=== PATIENT | male | born 1965 | race Caucasian/White ===

== ENCOUNTER 2018-09-10 00:07 | Emergency (ER) | payer BC, SELFPAY ==
[2018-09-10 00:08] VITALS: BP 178/90; PULSE 96; RESP 26; TEMP 36.9; O2SAT 96; BMI 32.6
--- NOTE | 2018-09-10 00:24 | RAD_ITS ---
STUDY: X-RAY CHEST REASON FOR EXAM: Male, 52 years old. Chest pain. TECHNIQUE: AP portable chest COMPARISON: None. FINDINGS: The lungs are clear and expanded. There is no demonstrated pleural abnormality. Normal size heart. Normal mediastinum and sandrine. Normal visualized pulmonary arteries. Normal visualized aortic arch and descending thoracic aorta. Normal visualized thoracic spine. Normal visualized ribs, clavicles, and shoulders. There is no demonstrated abnormality of the visualized soft tissue structures of the upper abdomen. RAD/Chest 1 View (Portable) IMPRESSION: Normal x-ray examination of the chest. Electronically Signed: Warren Cornejo MD at 0:54 EDT , Service support ,
--- NOTE | 2018-09-10 00:24 | EKG12_ITS ---
Test Reason : CP Blood Pressure : / mmHG Vent. Rate : 096 BPM Atrial Rate : 096 BPM P-R Int : 142 ms QRS Dur : 092 ms QT Int : 324 ms P-R-T Axes : 044 050 042 degrees QTc Int : 409 ms Normal sinus rhythm Normal ECG Confirmed by ZAK WOLF MD ([id number]), news editor NATANAEL CROCKETT ([id number]) on 09/14/2018 4:31:17 PM Referred By: BB Confirmed By:ZAK WOLF MD
--- NOTE | 2018-09-10 00:25 | ED.VIS.GEN ---
History of Present Illness Chief Complaint: Chest Pain Informant: Patient Onset: Today - 6.5 hrs ago Context: Gradual Onset - at rest, shortly after dinner Timing: Continuous Quality: dull ache Location: lower substernal Current Severity: Moderate Maximum Severity: Moderate Worsened by: slightly by deep inspiration. no change w/ light exertion. Relieved by: nothing. Associated Symptoms: none. Narrative: No radiation. No nausea or vomiting. No palpitations or dizziness. No shortness of breath. No recent calf pain or swelling. No recent travel, surgeries, hospitalizations, or other reasons for mobilization. No history of DVT or PE. No history of heart disease or strong history in first-degree relatives a young ages. Former smoker, less than [id number]-[id number] history. Currently chews tobacco but does not smoke it. Treated for hypertension, no other past medical history. Does a fair amount of exertion daily with work, has never had any angina with it. No stress test in the past. - Past Medical History (1) Hypertension Status: Chronic Past Medical History - Allergies and Home Meds Allergies/Adverse Reactions: Allergies No Known Allergies Allergy (Verified 09/10/18 00:19) Primary Care Physician: Conner De Leon MD [NON-STAFF] - As soon as possible Lives: Spouse/ Significant Other Smoking Status: Former smoker Drugs: None - Family History Paternal Family History: Reports: Hypertension. Denies: Heart Disease Review of Systems General: Denies: Chills, Fever, Sweats Eyes: Denies: Visual changes - bilaterally, Diplopia ENT: Denies: Rhinorrhea, Sore throat Cardiovascular: Reports: Chest pain. Denies: Palpitations Respiratory: Denies: Dyspnea, Cough, Dyspnea on exertion Gastrointestinal: Denies: Abdominal pain, Nausea, Vomiting, Diarrhea, Melena, Hematochezia Genitourinary: Denies: Dysuria, Hematuria, Frequency Musculoskeletal: Reports: Extremity Pain - Sore thighs bilaterally. Denies: Back pain Skin: Denies: Rash, Wounds Neurological: Denies: Headache, Weakness, Numbness Physical Exam Vital Signs/Narrative: Vital Signs Temp Pulse Resp BP Pulse Ox 09/10/18 00:08 98.4 F 96 26 H 178/90 H 96 Inital Vital Signs reviewed: Yes General: Well nourished, Well developed, No Acute Distress Head: Normocephalic, Atraumatic Eyes: Perrl, EOMI ENT: Moist mucous membranes, No rhinorrhea Neck: Supple, Nontender, No JVD Cardiovascular: Regular rate, Regular rhythm, No murmurs, Normal S1, Normal S2. Negative for: Tachycardia Respiratory: No distress, CTA bilaterally, Chest tenderness - Mild sternal Abdomen: Soft, Nondistended, Normal bowel sounds, Tender - Mild epigastrium. Negative for: Guarding, Rebound tenderness Back: Nontender, Normal Inspection Extremities: Nontender, No edema. Negative for: Calf Tenderness Skin: Normal color, No rash, No Trauma Neurological: Alert, Oriented x3, Cranial nerves II-XII grossly intact, Normal Strength, Normal Sensation Psychological: Normal affect, Normal Mood Diagnostic/Tx/Re-eval Impressions Chest X-Ray 09/10/18 00:24 IMPRESSION: Normal x-ray examination of the chest. Electronically Signed: Warren Cornejo MD at 0:54 EDT , Service support , 09/10/18 00:24 Chest 1 View (Portable) [RAD] Stat Laboratory Results 09/10/18 09/10/18 00:10 00:10 WBC 9.6 RBC 5.26 Hgb 15.2 Hct 43.1 MCV 81.9 MCH 28.9 MCHC 35.3 RDW 13.5 RDW Differential 40.1 Plt Count 264 MPV 8.2 Immature Gran % (Auto) 0.100 Neut % (Auto) 79.9 H Lymph % (Auto) 11.1 L Parker % (Auto) 5.9 Eos % (Auto) 2.8 Baso % (Auto) 0.2 Absolute Neuts (auto) 7.7 Absolute Lymphs (auto) 1.07 Total Counted Not Reportable Sodium 136 Potassium 3.7 Chloride 104 Carbon Dioxide 25.0 Anion Gap 7 BUN 24 H Creatinine 0.90 Estim Creat Clear Calc 96.88 Est GFR (MDRD) Af Amer 113 Est GFR (MDRD) Non-Af 94 BUN/Creatinine Ratio 26.8 H Glucose 120 H Calcium 8.6 Troponin I < 0.015 - Rhythm Strip Rhythm Strip: Sinus Rhythm Rate: 96 Ectopy: None - EKG Initial EKG Interpretation: Sinus Rhythm, No Acute Injury Pattern - Normal EKG. No prior. - Medical Decision Making Workup is normal including chest x-ray, EKG, troponin. His heart score is 2 because of his age and one risk factor. His LEVI risk score is 0. The single troponin that we measured, which is negative, was performed after he had 6+ hours of continuous discomfort. For that reason I do not think we need to repeat it tonight. I offered admission for urgent nonemergent stress testing since he does not have a PCP. He declines and prefers to go home. He was given a GI cocktail, it dulled the pain a little but did not resolve it. We tried a nitroglycerin, it did not change his discomfort. Esophageal spasm is in the differential diagnosis as is chest wall discomfort, unstable angina is very unlikely, given all of the above. Explained all this to the patient and he is comfortable going home. Given a PCP to follow-up with. ED Disposition - Plan for ED Patient: Disposition: Home or Assisted Living Diagnosis: Chest pain, unspecified Instructions: ED Chest Pain Atypical Unkn Cause Referrals: Conner De Leon MD [NON-STAFF] - As soon as possible
[2018-09-10 00:32] LABS: Absolute Lymphocyte Count 1.07 X10^3/ul (0.83-4.51); Absolute Neutrophil Count 7.7 X10^3/uL (2.0-7.7); Basophil# 0.02 X10^3/uL; Basophil% 0.2 % (0-1); Eosinophil# 0.27 X10^3/uL; Eosinophils% 2.8 % (0-5); Hematocrit 43.1 % (40-54); Hemoglobin 15.2 g/dl (13.0-16.5); Lymphocyte # 1.07 X10^3/ul (4.0); Lymphocyte % 11.1 % (19-41); Mean Corp Hgb Conc 35.3 g/gl (32-36); Mean Corpuscular Hgb 28.9 pg (27.0-32.0); Mean Corpuscular Volume 81.9 fL (80-94); Mean Platelet Vol. 8.2 fl (6.2-12.0); Monocyte# 0.57 X10^3/uL; Monocyte% 5.9 % (0-10); Neutrophil # 7.67 X10^3/uL (2.7-7.7); Neutrophil % 79.9 % (47-70); Platelet Count 264 K/mm3 (150-450); RBC Distribution Width CV 13.5 % (11.6-14.6); RBC Distribution Width SD 40.1 fl (35.1-43.9); Red Blood Count 5.26 M/mm3 (4.6-6.2); White Blood Count 9.6 K/mm3 (4.4-11.0)
[2018-09-10] MEDS: Mag Hydrox/Al Hydrox/Simeth 30 ML UDC PO (00:37)
[2018-09-10 00:40] LABS: POSITIVE COUNT NO; POSITIVE DIFFERENTIAL NO; POSITIVE MORPHOLOGY NO
[2018-09-10 00:44] LABS: Anion Gap 7 (5-15); BUN 24 mg/dL (7-18); BUN/Creat Ratio 26.8 RATIO (10-20); Calcium,Total 8.6 mg/dL (8.5-10.1); Chloride 104 mmol/L (98-107); EST Glomerular Filtration Rate 94 mL/min (>60); Est Glom Filt Rate - Afr Amer 113 mL/min (>60); Estimated Creatinine Clearance 96.88 ml/min; Glucose 120 mg/dL (74-106); Potassium 3.7 mmol/L (3.5-5.1); Sodium Level 136 mmol/L (136-145)
[2018-09-10 01:29] VITALS: BP 129/81; PULSE 78
[2018-09-10 01:39] VITALS: BP 112/74; PULSE 81; RESP 25; O2SAT 95
[2018-09-10 01:46] VITALS: BP 112/74; PULSE 81; RESP 25; O2SAT 95
== END 2018-09-10 01:48 | disposition home or self-care (01) ==
PROVIDERS: Emergency Provider Emergency Medicine
DX: R07.9 Chest pain, unspecified (principal); I10 Essential (primary) hypertension; F17.220 Nicotine dependence, chewing tobacco, uncomplicated; Z87.891 Personal history of nicotine dependence
CPT/HCPCS: 71045; 80048; 84484; 85025; 93005; 99285; A4216

== ENCOUNTER → 2023-11-26 | Outpatient (CLI) | payer BC, SELFPAY ==
[2023-11-26 16:11] LABS: Absolute Lymphocyte Count 1.71 X10^3/uL (0.83-4.51); Absolute Neutrophil Count 5.3 X10^3/uL (2.0-7.7); Basophil# 0.03 X10^3/uL; Basophil% 0.4 % (0-1); Eosinophil# 0.45 X10^3/uL; Eosinophils% 5.6 % (0-5); Hematocrit 45.3 % (40-54); Hemoglobin 15.5 g/dL (13.0-16.5); Lymphocyte # 1.71 X10^3/ul (0.83-4.51); Lymphocyte % 21.2 % (19-41); Mean Corp Hgb Conc 34.2 g/dL (32-36); Mean Corpuscular Volume 87.6 fL (80-94); Mean Platelet Vol. 8.5 fl (6.2-12.0); Monocyte# 0.53 X10^3/uL; Monocyte% 6.6 % (0-10); NRBC Flagged by Analyzer 0 % (0-5); Neutrophil # 5.33 X10^3/uL (2.7-7.7); Platelet Count 232 K/mm3 (150-450); RBC Distribution Width CV 12.5 % (11.6-14.6); RBC Distribution Width SD 40.3 fl (35.1-43.9); Red Blood Count 5.17 M/mm3 (4.6-6.2); White Blood Count 8.1 K/mm3 (4.4-11.0)
[2023-11-26 16:50] LABS: ALB/GLOB Ratio 0.9 RATIO (0.9-2.4); AST(SGOT) 14 U/L (15-37); Alanine Aminotransfer ALT/SGPT 25 U/L (16-61); Albumin, Serum 3.7 g/dL (3.2-5.0); Alkaline Phosphatase 81 U/L (45-117); Anion Gap 4 (5-15); BUN 23 mg/dL (7-18); BUN/Creat Ratio 21.5 RATIO (10-20); Calcium,Total 9.1 mg/dL (8.5-10.1); Chloride 104 mmol/L (98-107); Cholesterol 161 mg/dL (200); Creatinine, Serum 1.07 mg/dL (0.70-1.30); EST Glomerular Filtration Rate 75 mL/min (>60); Est Glom Filt Rate - Afr Amer 91 mL/min (>60); Glucose 86 mg/dL (74-106); High Density Lipoprotein 47 mg/dL; PSA,Total- Diagnostic 0.38 ng/mL (0.0-4.0); Potassium 4.1 mmol/L (3.5-5.1); Protein, Total 7.7 g/dL (6.4-8.2); Sodium Level 137 mmol/L (136-145); Thyroid Stim Hormone (TSH) 2.34 uIU/mL (0.358-3.74); Triglycerides 88 mg/dL; Very Low Density Lipoprotein 18 mg/dL (5-40)
== END | disposition home or self-care (01) ==
LOC: BIMLAB 15:41
PROVIDERS: PCP Internal Medicine; Visit Provider Internal Medicine
DX: I10 Essential (primary) hypertension (principal); R39.12 Poor urinary stream; Z13.6 Encounter for screening for cardiovascular disorders
CPT/HCPCS: 36415; 80053; 80061; 84153; 84443; 85025

== ENCOUNTER 2024-01-20 08:20 | Day surgery (SDC) | payer BC, SELFPAY ==
[2024-01-20] VITALS (7 sets, daily range): BP systolic 68–137; BP diastolic 40–79; PULSE 58–81; RESP 16–18; TEMP 36.4–36.8; O2SAT 92–100; BMI 32.7
--- NOTE | 2024-01-20 08:42 | PCM.PRE.AN2 ---
ASA Classification* ASA Classification ASA Classification: 2 Assessment & Plan Anesthesia* Anesthesia Assessment Anesthesia Assessment: Discussed sedation and/or anesthesia options, risks, benefits, and alternatives with patient/parents/legal guardian/POA. Questions invited. The patient/parents/legal guardian/POA seems to understand and agrees to proceed with anesthesia plan. Reviewed the physical assessment, medical history, allergy history and patient home medications list prior to surgery/procedure/anesthetic and documented any changes. Performed airway and anesthesia risk assessments. Anesthesia Type Anesthesia Type: MAC (see written pre anesthesia record for full assessment) Anesthesia Focused Assessment* Airway Assessment Mouth opens: >3 cm Mallampati Score: II Focused Labs Anesthesia Preop lab: CBC WBC 8.1 K/mm3 (4.4-11.0) 11/26/23 15:41 RBC 5.17 M/mm3 (4.6-6.2) 11/26/23 15:41 Hgb 15.5 g/dL (13.0-16.5) 11/26/23 15:41 Hct 45.3 % (40-54) 11/26/23 15:41 Plt Count 232 K/mm3 (150-450) 11/26/23 15:41 CHEMISTRY Potassium 4.1 mmol/L (3.5-5.1) 11/26/23 15:41 Sodium 137 mmol/L (136-145) 11/26/23 15:41 BUN 23 mg/dL (7-18) H 11/26/23 15:41 Creatinine 1.07 mg/dL (0.70-1.30) 11/26/23 15:41 Glucose 86 mg/dL (74-106) 11/26/23 15:41 TSH 2.34 uIU/mL (0.358-3.74) 11/26/23 15:41 COAG Pre-Assessment Diagnosis/Proposed Procedure Planned Operative Procedure(s): CSCOPE Anesthesia History Anesthesia History - senior director insight: Anesthesia History - senior director insight Hx Hospitalization No 01/15/24 10:14 Any Problems With Anesthesia No 01/15/24 10:14 Cholinesterase deficiency No 01/15/24 10:14 You/Your Family Experience No 01/15/24 10:14 fever (hyperthermia) with Relationship Recent Exposure to Contagious Disease Does patient have nerve No 01/15/24 10:14 stimulator Patient instructed to have device shut off --Does patient have Pacemaker or ICD? When Was Last Pacemaker Check QUESTION #4 FULL TEXT: You/Your Family Experience fever (hyperthermia) with Anesthesia Last Oral Intake Last Oral intake: Last Oral Intake NPO since Meds taken in AM with sips of water? Meds patient instructed to take am of surgery PONV PONV - senior director insight: PONV - senior director insight Female No 01/15/24 10:14 HX of Motion Sickness No 01/15/24 10:14 HX of N/V After Surgery No 01/15/24 10:14 Non-Smoker Yes 01/15/24 10:14 Duration of Surgery greater No 01/15/24 10:14 than 60 minutes Number of Risk Factors 1 01/15/24 10:14 PONV Score Low Risk 01/15/24 10:14 Height & Weight Height & Weight: Anesthesia: Height & Weight Height 5 ft 10 in 11/26/23 08:00 Respiratory Assessment Respiratory Assessment - senior director insight: Respiratory Tract Infection Hx - senior director insight Hx Respiratory Tract Infection No 01/15/24 10:14 STOP Sleep Apnea STOP Sleep Apnea - senior director insight: STOP Sleep Apnea - senior director insight Hx Hypertension Yes: CONTROLLED WITH MED 01/15/24 10:14 Hx Sleep Apnea No 01/15/24 10:14 CPAP BIPAP Do you snore loudly (louder No 01/15/24 10:14 than talking or can be heard Do you often feel tired/ No 01/15/24 10:14 fatigued/ sleepy during daytime? Has anyone observed you stop No 01/15/24 10:14 breathing during sleep? STOP Results Negative 01/15/24 10:14 QUESTION #5 FULL TEXT : Do you snore loudly (louder than talking or can be heard through closed doors)? Tobacco Use History Tobacco Use History - senior director insight: Tobacco Use History - senior director insight Tobacco Use Smoking Status Current every day smoker 01/15/24 10:14 Hx Tobacco Use Yes 01/15/24 10:14 Years Smoking Packs Smoked per Day Smoking Cessation Date was within the last 15 years Hx Smoking Cessation Date Hx Smoking Cessation Counseling Hematologic Medial History Hematologic Hx - senior director insight: Hematologic Medical Hx - documentation spec Hx of Blood Transfusion No 01/15/24 10:14 Hx of Transfusion in last 3 No 01/15/24 10:14 Months Date of Last Transfusion (if within last 3 months) Ever experience any problems No 01/15/24 10:14 with transfusion(s)? Specify any problems Hx of Preganancy in last 3 N/A 01/15/24 10:14 Months Nurse Filling Out Transfusion NBUCHER 01/15/24 10:14 & Questions: Date: 01/15/24 01/15/24 10:14 Time: 10:16 01/15/24 10:14 Patient unable to answer at this time (ie. confused, unrespo /Reproduction History /Reproductive History - senior director insight: /Reproductive Hx- senior director insight Hx Now No 01/15/24 10:14 Gestational Age (in weeks): EDC: Hx Hx Para Hx Section SAB No 01/15/24 10:14 Active Medications Active Medications: Current Medications Generic Name Dose Route Start Last Admin Trade Name Freq PRN Reason Stop Dose Admin Lactated Ringer's 1,000 mls @ 15 mls/hr 01/20/24 08:30 IV .Q48H JESUS PFSH Medical History Wears contact lenses Arthritis Chronic cough Smokeless tobacco use Former smoker Family history of colon cancer in father Hx of colonic polyp Back problem Seasonal allergies Asthma Home Medications ?Medication ?Instructions ?Recorded ?Last Taken ?Type lisinopril 20 mg tablet 20 mg PO DAILY #90 tabs 12/10/23 Unknown Rx vitamin B complex 1 tab PO DAILY 12/15/23 Unknown History Allergy/AdvReac Type Severity Reaction Status Date / Time No Known Allergies Allergy Verified 01/15/24 10:13 Family History Father Cancer liver,bladder Colon cancer Hypertension Sister Hypertension Sister Hypertension Surgical History History of colonoscopy with polypectomy H/O cataract removal with insertion of prosthetic lens S/P appendectomy Social History adopted: No household members: spouse and children number of children: 2 current occupational status: employed current occupation: [employer] pets and animals: Yes (1) pets and animals: dog(s) sexually active: Yes Smoking Status: Current every day smoker tobacco type: smokeless tobacco Tobacco: How many years used: 7 Smokeless tobacco user: chewing tobacco alcohol intake: current alcohol intake frequency: 0-2 drinks per day Alcohol type: beer substance use type: does not use caffeine: Yes (1-2) Type: coffee frequency: daily seatbelt use: always do you feel safe at home: Yes Review of Systems (Anesthesia) ROS Narrative System reviewed and no additional complaints, except as documented.
[2024-01-20] MEDS: Lactated Ringers 1,000 ML 15 ML IV (08:43)
--- NOTE | 2024-01-20 08:59 | HP.PCM_ITS ---
HPI - General HPI Narrative OZZIE JENKINS, is a 58 M who presents for screening colonoscopy. Last colonoscopy was 10 years ago. Patient denies blood in the stool or abdominal pain. He does have family history of colon cancer in his father over age 60. [facility] Medical History Wears contact lenses Arthritis Chronic cough Smokeless tobacco use Former smoker Family history of colon cancer in father Hx of colonic polyp Back problem Seasonal allergies Asthma Home Medications ?Medication ?Instructions ?Recorded ?Last Taken ?Type lisinopril 20 mg tablet 20 mg PO DAILY #90 tabs 12/10/23 01/20/24 Rx vitamin B complex 1 tab PO DAILY 12/15/23 Unknown History Allergy/AdvReac Type Severity Reaction Status Date / Time No Known Allergies Allergy Verified 01/20/24 08:43 Family History Father Cancer liver,bladder Colon cancer Hypertension Sister Hypertension Sister Hypertension Surgical History History of colonoscopy with polypectomy H/O cataract removal with insertion of prosthetic lens S/P appendectomy Social History adopted: No household members: spouse and children number of children: 2 current occupational status: employed current occupation: [employer] pets and animals: Yes (1) pets and animals: dog(s) sexually active: Yes Smoking Status: Current every day smoker tobacco type: smokeless tobacco Tobacco: How many years used: 7 Smokeless tobacco user: chewing tobacco alcohol intake: current alcohol intake frequency: 0-2 drinks per day Alcohol type: beer substance use type: does not use caffeine: Yes (1-2) Type: coffee frequency: daily seatbelt use: always do you feel safe at home: Yes Past Medical/Surgical History Planned Operation Planned Operative Procedure(s): CSCOPE Previous Hospitalizations/Surgeries HX Hospitalizations: No Any Problems With Anesthesia: No You/Your Family Experience Fever (Hyperthermia) With Anes: No Cholinesterase deficiency: No Cardiovascular Hx Hypertension: Yes (CONTROLLED WITH MED) Respiratory Hx Asthma: Yes Hx Sleep Apnea: No Hx Respiratory Tract Infection/Cold (presently): No Do You Snore Loudly (louder than talking or can be heard): No Do You Often Feel Tired/ Fatigued/ Sleepy Dring Daytime?: No Has Anyone Observed You Stop Breathing During Sleep?: No Result (for STOP score): Negative Smoking Status: Current every day smoker Neurological Does patient have nerve stimulator: No Reproduction : No Psycho/Social Hx Alcohol Use: Yes (a few drinks with dinner) Miscellaneous Recent Exposure to Contagious Disease: No Allergies No Known Allergies Allergy (Verified 01/20/24 08:43) Paternal: Family History Father Cancer liver,bladder Colon cancer Hypertension Sister Hypertension Sister Hypertension Hypertension Discharge Is Pt Admitted From a Senior Living, or a Assisted: No After D/C, Where Do you Plan to Go: Return Home Vital Signs Vital Signs Vital Signs: 01/20/24 08:45 01/20/24 08:45 Temperature 97.6 F L Temperature Source Temporal Pulse Rate 58 L Respiratory Rate 18 Respiratory Pattern Normal Blood Pressure 137/79 H Blood Pressure Mean 98 Blood Pressure Source Monitor Blood Pressure Position Semi-Fowlers Blood Pressure Location Right Arm Pulse Ox 100 Oxygen Delivery Method Room Air Weight Weight: 228 lb Body Mass Index (BMI) 32.7 Physical Exam Const alert and oriented x3 HEENT normocephalic Eyes PERRL Resp normal respiratory effort and normal air movement Cardio regular rate and regular rhythm GI soft to palpation, non-tender and non-distended Extremity normal to inspection Assessment & Plan Assessment/Plan (1) Encounter for screening for malignant neoplasm of colon: PLAN: I explained endoscopy in detail to the patient. I explained the risks including but not limited to stroke or heart attack with anesthesia, perforation of the GI tract, bleeding, infection. I explained that any of these could necessitate further emergency surgery. The patient understands and all questions were answered sufficiently. The patient wishes to proceed with procedure. Neymar Walker MD Pager: [facility] [address] [place] [address], [address] [place] [address] Office: Surgery Risks - Colonoscopy Risks Include but are not Limited To: Risks include but are not limited to: Bleeding, perforation requiring further surgery, inability to complete colonoscopy requiring barium enema.
--- NOTE | 2024-01-20 09:27 | OP.COLON_ITS ---
Patient Name: Bairon Pearson Procedure Date: 01/20/2024 9:02 AM Date of : 1965 Age: 58 Procedure: Colonoscopy Indications: Screening for colorectal malignant neoplasm Providers: Neymar Walker MD Medicines: Propofol per Anesthesia Patient Profile: This is a 58 year old male. Refer to note in patient chart for documentation of history and physical. Last Colonoscopy: 10 years ago. Complications: No immediate complications. Procedure: Pre-Anesthesia Assessment: - Prior to the procedure, a History and Physical was performed, and patient medications and allergies were reviewed. The patient's tolerance of previous anesthesia was also reviewed. The risks and benefits of the procedure and the sedation options and risks were discussed with the patient. All questions were answered, and informed consent was obtained. Prior Anticoagulants: The patient has taken no anticoagulant or antiplatelet agents. After reviewing the risks and benefits, the patient was deemed in satisfactory condition to undergo the procedure. After I obtained informed consent, the scope was passed under direct vision. Throughout the procedure, the patient's blood pressure, pulse, and oxygen saturations were monitored continuously. The pediatric colonoscope was introduced through the anus and advanced to the cecum, identified by appendiceal orifice and ileocecal valve. The colonoscopy was performed without difficulty. The patient tolerated the procedure well. The quality of the bowel preparation was good. The ileocecal valve, appendiceal orifice, and rectum were photographed. Scope In: 9:13:03 AM Scope Withdrawal Time 0 hours 4 minutes 52 seconds Scope Out: 9:23:14 AM Total Procedure Duration Time 0 hours 10 minutes 11 seconds Findings: The entire examined colon appeared normal on direct and retroflexion views. Impression: - The entire examined colon is normal on direct and retroflexion views. - No specimens collected. Recommendation: - Discharge patient to home. - Resume previous diet. - Continue present medications. - Repeat colonoscopy in 10 years for screening purposes. Procedure Code(s): --- Professional --- 99006, Colonoscopy, flexible; diagnostic, including collection of specimen(s) by brushing or washing, when performed (separate procedure) Diagnosis Code(s): --- Professional --- Z12.11, Encounter for screening for malignant neoplasm of colon CPT copyright 2021 [employer]. All rights reserved. The codes documented in this report are preliminary and upon scale assembly set up worker review may be revised to meet current compliance requirements. Neymar Walker MD 01/20/2024 9:27:04 AM This report has been signed electronically. Number of Addenda: 0 Note Initiated On: 01/20/2024 9:02 AM
--- NOTE | 2024-01-20 09:27 | OP.CCLET_ITS ---
01/20/2024 Michelle Partida Md Re : Colonoscopy procedure for Bairon Pearson Dear Jaquan This procedure was performed on Saturday, January 20, 2024. My impressions and recommendations are as follows: Impressions : - The entire examined colon is normal on direct and retroflexion views. - No specimens collected. Recommendations : - Discharge patient to home. - Resume previous diet. - Continue present medications. - Repeat colonoscopy in 10 years for screening purposes. My findings are described in the full procedure note, which is enclosed. If I can be of further assistance, please feel free to contact me at Doctor phone number(s): , Work: . Sincerely, Neymar Walker MD 01/20/2024 9:27:04 AM This report has been signed electronically.
--- NOTE | 2024-01-20 09:33 | PCM.POST.ANE ---
Anesthesia: Postop Eval I Current Vital Signs Temperature: 97.7 F Pulse Rate: 60 Blood Pressure: 77/61 Respiratory Rate: 16 Pulse Ox: 96 Oxygen Delivery Method: Room Air Assessment Airway patent: Yes Spontaneous unlabored respirations: Yes Mental status: Asleep nausea: No Vomiting: No Anesthesia Complication: No Fluid Hydration Crystalloid volume administer (ml): 500 Total IV fluid infused: 500 Progress Note Anesthesia document: Postop Eval 1 completed: Yes
--- NOTE | 2024-01-20 16:32 | PCM.POSTANE2 ---
Anesthesia Postop Eval I Sum Postop Eval Completion status Anesthesia document: Postop Eval 1 completed: Yes Anesthesia Postop Eval I Summary Anesthesia Postop Eval I Summary: Anesthesia Postop Eval I: Assessment Summary Airway patent Yes 01/20/24 09:34 [email or web address] Spontaneous unlabored Yes 01/20/24 09:34 [email or web address] respirations Mental status Asleep 01/20/24 09:34 [email or web address] nausea No 01/20/24 09:34 [email or web address] Vomiting No 01/20/24 09:34 [email or web address] Anesthesia Postop Eval I: Fluid Summary Crystalloid volume administer 500 01/20/24 09:34 [email or web address] (ml) Colloids volume administered ( ml) Blood Product volume administered (ml) Total IV fluid infused 500 01/20/24 09:34 [email or web address] Anesthesia Postop Eval I: Summary Notes Anesthesia Complication No 01/20/24 09:34 [email or web address] Anesthesia Complication Comment: Post-operative progress note Anesthesia: Postop Eval II Evaluation Mental status: Awake and Calm Pain Level: 0 nausea: No Vomiting: No Complications Anesthesia Complication: No
== END 2024-01-20 10:14 | disposition home or self-care (01) ==
LOC: EN 08:21 → AC 08:22
PROVIDERS: PCP Internal Medicine; Referring Provider Internal Medicine; Visit Provider Surgery
PROC: 0DJD8ZZ Inspection of Lower Intestinal Tract, Via Natural or Artificial Opening Endoscopic (ICD-10-PCS; CPT 45378; principal; 2024-01-20 09:25)
DX: Z12.11 Encounter for screening for malignant neoplasm of colon (principal); I10 Essential (primary) hypertension; F17.220 Nicotine dependence, chewing tobacco, uncomplicated; Z80.0 Family history of malignant neoplasm of digestive organs
CPT/HCPCS: 45378; J7120; J2405

== ENCOUNTER → 2024-09-29 | Outpatient (CLI) | payer BC, SELFPAY ==
[2024-09-29 12:59] LABS: Absolute Lymphocyte Count 1.21 X10^3/uL (0.83-4.51); Absolute Neutrophil Count 4.7 X10^3/uL (2.0-7.7); Basophil# 0.02 X10^3/uL; Basophil% 0.3 % (0-1); Eosinophil# 0.25 X10^3/uL; Eosinophils% 3.8 % (0-5); Hematocrit 46.2 % (40-54); Hemoglobin 15.4 g/dL (13.0-16.5); Lymphocyte # 1.21 X10^3/ul (0.83-4.51); Lymphocyte % 18.2 % (19-41); Mean Corp Hgb Conc 33.3 g/dL (32-36); Mean Corpuscular Hgb 29.9 pg (27.0-32.0); Mean Corpuscular Volume 89.7 fL (80-94); Mean Platelet Vol. 8.7 fl (6.2-12.0); Monocyte# 0.43 X10^3/uL; Monocyte% 6.5 % (0-10); NRBC Flagged by Analyzer 0 % (0-5); Neutrophil # 4.71 X10^3/uL (2.7-7.7); Neutrophil % 70.9 % (47-70); Platelet Count 268 K/mm3 (150-450); RBC Distribution Width CV 13.3 % (11.6-14.6); RBC Distribution Width SD 44.2 fl (35.1-43.9); Red Blood Count 5.15 M/mm3 (4.6-6.2); White Blood Count 6.6 K/mm3 (4.4-11.0)
[2024-09-29 13:37] LABS: ALB/GLOB Ratio 1.3 RATIO (0.9-2.4); AST(SGOT) 16 U/L (<=37); Alanine Aminotransfer ALT/SGPT 18 U/L (<=46); Alkaline Phosphatase 74 U/L (40-129); Anion Gap 9 (5-15); BUN 14 mg/dL (4-19); Calcium,Total 9.3 mg/dL (7.6-11.0); Carbon Dioxide 26.1 mmol/L (21.0-32.0); Chloride 105 mmol/L (98-108); Cholesterol 161 mg/dL (<=200); Creatinine, Serum 0.99 mg/dL (0.70-1.20); EST Glomerular Filtration Rate 87 (>60); Glucose 97 mg/dL (70-99); High Density Lipoprotein 41 mg/dL; Low Density Lipoprotein Calc. 94 mg/dL; PSA,Total- Diagnostic 0.34 ng/mL (0.00-4.00); Sodium Level 141 mmol/L (133-145); Total Bilirubin 0.78 mg/dL (0.00-1.30); Triglycerides 131 mg/dL; Very Low Density Lipoprotein 26 mg/dL (5-40); cholesterol:hdl ratio screen 3.91
== END | disposition home or self-care (01) ==
LOC: BIMLAB 08:01
PROVIDERS: PCP Internal Medicine; Referring Provider Internal Medicine; Visit Provider Internal Medicine
DX: I10 Essential (primary) hypertension (principal); R39.12 Poor urinary stream
CPT/HCPCS: 36415; 80053; 80061; 84153; 85025